=== PATIENT | male | born 1945 | race Two or more races ===

== ENCOUNTER → 2016-10-21 | Emergency (ER) | payer MEDICARE, MEDICAID ==
[~2016-10-21] VITALS: Ht 172.7 cm; Wt 65.8 kg
[~2016-10-21] MED LIST: IBUPROFEN600 MG ORAL; NKM; TRAMADOL HCL50 MG ORAL; traMADol 50mg tab ORAL ONE
[2016-10-21 18:14] VITALS: BP 102/61
[2016-10-21 19:20] VITALS: BP 134/78
--- NOTE | 2016-10-21 22:40 | Emergency Room Report ---
History of Present Illness General Chief Complaint: Lower Back Pain or Injury Source: Patient Present Illness HPI The patient is a 71 yo M presenting for chronic low back pain and L leg pain. The patient states he has had back pain for 10 years but is unsure of the diagnosis. The patient states his PMD has asked him if he would like surgery, but the patient has declined because he is afraid of risks. The patient states he has never been on pain management for this and the pain was decreasing until he fell two weeks prior. The patient states he was getting onto his bike and fell onto his left side. The patient did not hit his head or lose consciousness. The patient now states the pain is a 9/10 to the L lower back and L lateral leg. No radiation of pain and pt denies numbness/tingling. The patient has not tried any medications for the pain since the injury and has not sought Medical treatment. The patient denies any other symptoms. Allergies: Coded Allergies: No Known Allergies (Unverified , 10/21/16) Patient History Past Medical History: see triage record Pertinent Family History: none Reviewed Nursing Documentation: PMH: Agreed, PSxH: Agreed Nursing Documentation-PMH Past Medical History: No Stated History Review of Systems All Other Systems: negative except mentioned in HPI Physical Exam Vital Signs Date Time Temp Pulse Resp B/P Pulse Ox O2 Delivery O2 Flow Rate FiO2 10/21/16 18:08 98.4 86 16 102/61 98 Room Air Sp02 EP Interpretation: reviewed, normal General Appearance: no apparent distress, alert, GCS 15, non-toxic Head: normocephalic, atraumatic Eyes: bilateral eye PERRL, bilateral eye normal inspection ENT: hearing grossly normal, normal pharynx, no angioedema, normal voice Neck: full range of motion, supple/symm/no masses Respiratory: chest non-tender, lungs clear, normal breath sounds, speaking full sentences Musculoskeletal: digits/nails normal, gait/station normal, normal range of motion, no calf tenderness, tender - TTP over the L lateral lower leg and L paraspinous muscles Neurologic: alert, oriented x3, responsive, motor strength/tone normal, normal gait Psychiatric: judgement/insight normal, memory normal, mood/affect normal, no suicidal/homicidal ideation Reflexes: 3+ bicep (R), 3+ bicep (L), 3+ tricep (R), 3+ tricep (L), 3+ knee (R) , 3+ knee (L) Skin: normal color, no rash, warm/dry, well hydrated, abrasions - L lateral leg : well healing Lymphatic: no adenopathy Medical Decision Making PA Attsilviano Swanson is my supervising physician. Patient management was discussed with my supervising physician Diagnostic Impression: Primary Impression: Chronic low back pain Additional Impression: Contusion of leg, left ER Course The patient is a 71 yo M presenting for chronic low back pain and L leg pain Ddx considered include but not limited to sprain/strain, fracture, contusion PE: vitals WNL. NAD. Back: full AROM. SILT. No edema. No step-offs. TTP over L paraspinous muscles. L lower leg: superficial abrasions to the lateral leg. Well healing. No surrounding erythema. SILT. No deformity. No ecchymosis. Full AROM No imaging needed at this time. The patient is given motrin and tramadol for pain and will be NE'ed home. Pt needs to FU with PMD Last Vital Signs Date Time Temp Pulse Resp B/P Pulse Ox O2 Delivery O2 Flow Rate FiO2 10/21/16 19:20 85 14 134/78 100 Room Air 10/21/16 19:20 97.8 Status: improved Disposition: HOME, SELF-CARE Condition: Improved Scripts Tramadol Hcl* (ULTRAM*) 50 Mg Tablet 50 MG ORAL Q6H Y for For Pain, #15 TAB 0 Refills Prov: TERZIAN,MARYCHUY P.A. 10/21/16 Ibuprofen* (MOTRIN*) 600 Mg Tablet 600 MG ORAL Q8H Y for For Pain, #30 TAB 0 Refills Prov: TERZIAN,MARYCHUY P.A. 10/21/16 Referrals: NOT CHOSEN [facility]/MD,REFERRING (PCP) Patient Instructions: Back Pain, Adult Additional Instructions: I discussed my findings with the patient. All questions and concerns have been answered. Treatment and medication compliance have been addressed. I advised the patient that they need to follow up with PMD in 3-5 days. Return to ED if pain remains or worsens, numbness or tingling occurs, new rash is noticed, fever is noticed, or if needed for any reason. Patient verbalized understanding of discharge instructions. TERBROOKLYNNAN,MARYCHUY P.A. Oct 21, 2016 22:40
== END | disposition home or self-care (01) ==
LOC: EMR 18:22
DX: G89.29 Other chronic pain (principal); M54.5 Low back pain; S80.12XA Contusion of left lower leg, initial encounter; W18.30XA Fall on same level, unspecified, initial encounter; Y92.9 Unspecified place or not applicable; Y99.8 Other external cause status
CPT/HCPCS: 99284